=== PATIENT | female | born 1940 | race Caucasian/White ===

== ENCOUNTER 2020-12-13 17:39 | Inpatient (IN) | payer OTHER, BC ==
[~2020-12-13] VITALS: Ht 162.6 cm; Wt 49.5 kg
[2020-12-13 17:51] VITALS: BP 157/97
[2020-12-13 18:51] LABS: ABSOLUTE NEUTROPHILS 3.1 thou/uL (1.4-8.2); BASOPHILS 0.3 % (0.0-2.0); EOSINOPHILS 0.4 % (0.0-3.0); HEMATOCRIT 37.6 % (37.0-47.0); HEMOGLOBIN 12.7 gm/dL (12.0-15.0); LYMPHOCYTES 13.1 % (24.0-44.0); MCH 31.2 pg (26.0-34.0); MCHC 33.9 g/dL (28.0-37.0); MCV 92.2 fL (80.0-100.0); MONOCYTES 9.9 % (1.0-8.0); PLATELET COUNT 240 thou/uL (150-400); POLYS 76.3 % (36.0-66.0); RBC 4.08 mil/uL (4.20-5.00); WBC 4.1 thou/uL (4.0-11.0)
[2020-12-13 18:58] LABS: CALCIUM 10.3 mg/dL (8.5-10.1); CREATININE 0.8 mg/dL (0.6-1.0); POTASSIUM 4.8 mmol/L (3.5-5.1)
[2020-12-13 19:36] LABS: ALBUMIN 3.6 g/dL (3.4-5.0); DIRECT BILIRUBIN 0.3 mg/dL (<0.1-0.2); TOTAL BILIRUBIN 1.8 mg/dL (0.2-1.0); TOTAL PROTEIN 6.2 g/dL (6.4-8.2)
[2020-12-13 21:51] VITALS: BP 157/97
[2020-12-13 22:18] VITALS: BP 156/86
[2020-12-13 23:17] VITALS: BP 173/90
[2020-12-13 23:33] VITALS: BP 173/90
--- NOTE | 2020-12-14 00:42 | NUR ---
RECEIVED REPORT FROM ED NURSE APPROX 2222, PT ARRIVED TO UNIT AT 2225. CONSENTS OBTAINED, BELONGINGS LOGGED. PT ORIENTED TO ROOM AND UNIT. PT AOX3, TO PERSON, PLACE, AND TIME. PT REPORTS 'IM HERE FOR AN OPERATION DOWN THERE' IN REGARDS TO SITUATION. PT WITH INTERMITTENT FORGETFULNESS AND CONFUSION. PT REMAINS PLEASANT WITH BRIGHT AFFECT AND COOPERATIVE MOOD. PT REPORTS NOT HAVING ANY HOME MEDICATIONS, RECALLS TAKING BP MEDICATIONS 'A WHILE AGO'. PT DENIES PAIN AND SOB WHILE ON ROOM AIR. PT TOLERATING PO INTAKE OF FLUIDS AND REGULAR DIET WITHOUT ISSUE. PT WITHOUT NAUSEA OR EMESIS. PT WITHOUT VOID OF ENTRY OF THIS NOTE, VOIDING ROUTINE TO BE DETERMINED. PT WITH WEAKNESS, RESTING IN BED THROUGHOUT SHIFT. FREQUENT REPOSITIONING ENCOURAGED WHILE IN BED, PT NOTED TO SHIFT INDEPENDENTLY. PT ENCOURAGED TO NOTIFY STAFF FOR ALL NEEDS, CALL LIGHT WITHIN REACH, BED ALARM ON, BED LOCKED IN LOWEST POSITION, FREQUENT MONITORING WILL CONTINUE.
[2020-12-14 05:00] LABS: ABSOLUTE NEUTROPHILS 2.5 thou/uL (1.4-8.2); BASOPHILS 0.2 % (0.0-2.0); EOSINOPHILS 1.1 % (0.0-3.0); HEMATOCRIT 37.8 % (37.0-47.0); HEMOGLOBIN 12.8 gm/dL (12.0-15.0); LYMPHOCYTES 19.8 % (24.0-44.0); MCH 31.2 pg (26.0-34.0); MCHC 33.8 g/dL (28.0-37.0); MCV 92.3 fL (80.0-100.0); MONOCYTES 11.3 % (1.0-8.0); PLATELET COUNT 244 thou/uL (150-400); POLYS 67.6 % (36.0-66.0); RDW 14.2 % (10.5-14.5); WBC 3.6 thou/uL (4.0-11.0)
[2020-12-14 05:06] LABS: ALBUMIN 3.7 g/dL (3.4-5.0); CREATININE 0.8 mg/dL (0.6-1.0); TOTAL PROTEIN 6.9 g/dL (6.4-8.2)
[2020-12-14 05:41] LABS: POTASSIUM 3.7 mmol/L (3.5-5.1)
--- NOTE | 2020-12-14 07:35 | H ---
[facility] [place] [address] HISTORY AND PHYSICAL Name: COLLIN FREIRE Room #: 462-P [facility] MGabino#: [id number] Admission: 12/13/20 Attend Phys: Alexey Voss DO Discharge: Date of : 44 Report #: [id number] THIS REPORT FOR: cc: Alexey Voss,Alexey Sanabria,Alexey Nagy DO ~ DATE OF SERVICE: 12/13/2020 HISTORY OF PRESENT ILLNESS: This is a 80-year-old white female who has been admitted for observation purposes initially because of anorexia, weakness, fall, left leg weakness, mental status change. For the last few days, the patient was extremely weaker and had to be assisted with walking. She had fallen a few days ago on her left knee. Denies any pain or head trauma. The patient has lost her appetite over the past month or two and has lost weight, refusing to eat or drink. She was in my office 2 weeks ago showing that she had lost 10 pounds; however, she scored 28/30 on an MMSE exam and seemed cognitively intact at that time. Family describes bizarre behavior, confusion, forgetfulness, repeating herself, refusing to take medications, refusing to believe anything is wrong with her. 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, bilateral cataract resections, hypertension, COVID-19 late last year, lumbar degenerative disk disease, Gilbert's disease, hypertension, hypercholesterolemia. MEDICATIONS ON ADMISSION: None, but she still has been on blood pressure medication, lisinopril-HCTZ, but she refuses to take. ALLERGIES: SULFA AND PREDNISONE. SOCIAL HISTORY: Lives with her and daughter. No cigarette or alcohol use. FAMILY HISTORY: Mother of thyroid cancer. Father of unknown cause. REVIEW OF SYSTEMS: She denies chest pain or dyspnea, vomiting, nausea, diarrhea, dysuria, dysphagia. Family reports they had to left her off the toilet yesterday as she could not get up herself. patient denies any pain anywhere. PHYSICAL EXAMINATION: GENERAL: A pale, weak white female. VITAL SIGNS: BP 157/97, pulse 74, respiration 18, temperature afebrile. HEAD: No rash or trauma. EARS, NOSE AND THROAT: No definite lesions. Mucosa slightly dry. EYES: No icterus. NECK: Supple, without adenopathy or bruits. LUNGS: [address] [address] HISTORY AND PHYSICAL Name: COLLIN FREIRE Room #: 2-P [facility] [place] Honey M.RPaty#: [id number] Admission: 12/13/20 Attend Phys: Alexey Voss, Discharge: Date of : 44 Report #: [id number] Clear. HEART: Rhythm regular, without murmur. ABDOMEN: Soft, without masses, tenderness or guarding or organomegaly. BREASTS: Done in my office revealed no masses. EXTREMITIES: No edema, cyanosis or cellulitis. MUSCULOSKELETAL: Her left knee slightly is swollen, but she moves and there is no tenderness on range of motion of her hips or knees. She is weak on her left leg. She cannot sit up on her own. She cannot stand on her own. She has negative Babinski's, but her patellar reflexe is decreased on the left compared to the right. LABORATORY DATA: Hemoglobin 12.7, MCV 92. White count 4100, platelets 240,000. Has lymphopenia. Calcium slightly high at 10.3, glucose 107, sodium 138, potassium 4.8, CO2 of 28, BUN 17, creatinine 0.8. His GFR 69. IMPRESSION: 1. Weakness, falls, left leg weakness, anorexia, weight loss and cognitive deficits, history of mixed mullerian uterine cancer. 2. Hypertension. 3. History of cognitive deficits, possible adjustment disorder, possible psychosis, pseudodementia or dementia. PLAN: Admit for thorough workup including medical, neurologic and psychiatric, need to rule out radiculopathy, tumor or stroke in brain, severe psychiatric disorder. PROGNOSIS: Guarded. <ELECTRONICALLY SIGNED> By: Alexey Voss DO 12/14/20 0735 1826 [id number] Alexey Voss DO /nt
[2020-12-14 07:39] VITALS: BP 178/96
--- NOTE | 2020-12-14 08:04 | EKG ---
[address] [facility] [place] [address] ELECTROCARDIOGRAM REPORT Name: COLLIN FREIRE Room #: 462-[facility]..#: [id number] Admission: 12/13/20 Attend Phys: Alexey Voss DO Discharge: Date of : 44 Report #: [id number] [facility] ED Test Date: 2020-12-13 Test Time: 18:28:49 Pat Name: COLLIN FREIRE Department: Room: [facility] Gender: F Grants Analyst: BAUDILIO : 1940 Requested By: Edgar Bocanegra Order Number: [id number] MD: Az Mascorro Measurements Intervals [place] Rate: 57 P: 54 NH: 141 QRS: -51 QRSD: 109 T: 70 QT: 484 QTc: 472 Interpretive Statements Sinus bradycardia Left anterior fascicular block Abnormal R-wave progression, late transition LVH with secondary repolarization abnormality Baseline wander in lead(s) V1 No previous ECG available for comparison Electronically Signed On 12-14-2020 8:04:37 CDT by Az Mascorro [email or web address] <ELECTRONICALLY SIGNED> By: Az Mascorro MD, [facility] 12/14/20 0804 1828 1828 Az Mascorro MD, [facility] /EPI
--- NOTE | 2020-12-14 12:10 | NUR ---
Consult was ordered for Dr. Suarez by Dr. Voss. This nurse evaluated patient and spoke with her regarding possible admission to the [facility] health unit. , Mingo, reported that patient was admitted due to weakness to legs and fall. Admits to patient having forgetfulness while at home. Denies patient being officially diagnosed with Dementia. Reports he has DPOA paperwork but patient has not been deemed incompetent. Denies having any other concerns at home except for mobility. Reports that he does not [facility] this point and wants to focus on her mobility issues. Mingo also reported concerns of loss of appetite for patient and weight loss. Education provided regarding services offered on the [facility]. Mingo and patient do not want to pursue admission at this time. Dr. Suarez and myself spoke with Dr. Voss over the phone. If patient and family decide they would like admission to the [facility], patient will be re-evaluated at that time. Dr. Suarez will evaluate patient today as well while on medical unit.
--- NOTE | 2020-12-14 14:48 | NUR ---
The staff asked the patient," are you comfortable now?" after setting the bed grajeda for the patient, patient said, " I do not know, all i know is i feel miserable." the told the staff that the looked uncomfortable in the way she was lying the bed, asked the staff to find a way to make the patient comfortable. the refused all the suggestions the staff gave, such as letting the patient lie on the side and supporting the body with a pillow. the staff asked the to give some suggestions how to make the comfortable, the said, " I do not know.", the complained, " she was comfortable before they gave her the medication."
[2020-12-14 15:37] VITALS: BP 155/82
--- NOTE | 2020-12-14 15:58 | NUR ---
PT ADMITTED RELATED TO WEAKNESS/DEMENTIA. CM REVIEWED CHART AND SPOKE WITH CARE TEAM. CM MET WITH PT AT BEDSIDE THIS DAY AT PT WASN'T ALERT ENOUGH THIS DAY TO PARTICIPATE IN ASSESSMENT. HE INDICATED THAT THEY LIVE IN A HOUSE WITH RAMPS TO ENTER AND AN ELEVATOR INSIDE. HE INDICATED THAT THEIR DTR MERLIN HAS RA SO THE HOUSE IS ACCESSABLE AND WELL EQUIPED FOR SOMEONE WITH DISABILITIES. HE INDICATED THAT PT HAD BEEN CONFUSED/HAD MEMORY ISSUES BUT HAD BEEN INDEPENDENT WITH MOBILITY UP UNTIL JUST BEFORE ADMISSION. THEY HAVE A FWW THAT THEY CAN USE IS NEEDED AT HOME. SPOUSE INDICATED NO HH HX. HE INDICATED THAT HE DOESN'T HAVE A CELL PHONE SO THAT THE HOUSE PHONE OR HIS DTR ARE THE BEST CONTACT. PT, OT, AND ST ORDERED BUT VARIANCED PT WASN'T ABLE TO PARTICIPATE THIS DAY. [facility] ALSO FOLLOWING. CM FOLLOWING REGARDING DC PLANNING.
--- NOTE | 2020-12-14 19:36 | NUR ---
Instruction from Dr. Kate: try not sedate the patient during the night, do not wake the patient up for vital signs during the night. the instruction was passed on to the night nurse. patient had slept for most of the morning, woke up in the afternoon, alert but disoriented, reorineted the patient. denied pain, no nausea or vomiting.
--- NOTE | 2020-12-15 04:44 | NUR ---
ASSUMED PT CARE THIS EVENING. PT IS ALERT AND ORIENTED TO SELF. PT WAS RESTLESS AND IMPULSIVE AT THE BEGINNING OF THE SHIFT. PT SETTLED IN BED FOR THE MOST PART OF THE SHIFT. SITTER IN THE ROOM WITH PT. PT DOES NOT HAVE PIV ACCESS. MEDS GIVEN PER EMAR ORDERS. FALL PRECAUTIONS IN PLACE. WILL CONTINUE TO MONITOR.
--- NOTE | 2020-12-15 15:28 | NUR ---
A/O X 1 SELF. ROOM AIR. ONE ASSIST WITH WALKER. LEFT LEG WEAKNESS. HAS EATEN 40% OF MEALS. AT BEDSIDE AND WANTS ALL MEDICATION VERIFIED BY HIM BEFORE GIVEN TO HER. NO PAIN.
[2020-12-15 15:40] VITALS: BP 150/85
[2020-12-15 15:42] VITALS: BP 158/87
--- NOTE | 2020-12-15 17:07 | NUR ---
SPOUSE NO LONGER INTERESTED IN ADMISSION TO [facility] WANTING SKILLED POST ACUTE CARE STAY. GIVEN LIST TO REVIEW.
[2020-12-15 20:00] VITALS: BP 154/96
--- NOTE | 2020-12-15 20:08 | HC ---
[facility] [place] [address] CONSULTATION Name: COLLIN FREIRE Room #: 462-P ADM IN M.R.#: [id number] Admission: 12/14/20 Attend Phys: Alexey Voss DO Discharge: Date of : 44 Report #: [id number] THIS REPORT FOR: cc: Alexey Voss Donald L. DO Kerstein, Andrew H. DO ~ DATE OF SERVICE: 12/14/2020 INPATIENT PSYCHIATRY CL CONSULTATION PRIMARY PHYSICIAN: Alexey Voss DO CONSULTING PSYCHIATRIST: Jean-Pierre Suarez DO REASON FOR CONSULTATION: Agitation, delirium in a patient with suspected dementia. SOURCES OF INFORMATION: Telephone conversation with Dr. Alexey Voss, initial assessment by Geriatric Psychiatry Unit, director of emergency nursing. Very limited bedside interview with the patient as she was being prepped for a bedside electroencephalogram, further collateral from her . CHIEF COMPLAINT: Unspecified. HISTORY OF PRESENT ILLNESS: This is a 80-year-old female, long time patient apparently of Dr. Alexey Voss. In fact, her states that they saw Dr. Voss's father. The patient was initially admitted due to anorexia, weakness or falls. She reports new-onset left leg weakness, mental status change. Dr. Voss reported for the last few days the patient was extremely weak and had to be assisted with walking. She had fallen a few days ago on her left knee. Denied pain or head trauma. The patient has lost her appetite over the past month or two and has lost weight, refusing to eat or drink. Dr. Voss saw her in the office 2 weeks ago and showing that she had lost 10 pounds. She scored reportedly a 20/30 on the MMSE exam, cognitively intact several weeks ago. The family describes some bizarre behavior, confusion, forgetfulness, repeating herself, refusing to take medications and refusing to believe anything is wrong with her. The patient has a complicated medical history including mixed mullerian and uterine cancer over a year ago, treated with laparoscopic hysterectomy and bilateral salpingo-oophorectomy in 11/2018 [facility]. She also had an endometrial biopsy at [facility] in 2015. She has had bilateral cataract resections. Medically, she has hypertension. She had COVID-19 late in 2019. She has a history of lumbar degenerative disk disease, Gilbert's disease, hypertension, hypercholesterolemia. The patient has been on the combination of blood pressure pill, lisinopril/hydrochlorothiazide, but refuses to take it. [place] [address] CONSULTATION Name: COLLIN FREIRE Room #: 462-P [facility] IN M.R.#: [id number] Admission: 12/14/20 Attend Phys: Alexey Voss DO Discharge: Date of : 44 Report #: [id number] ALLERGIES: LISTED TO SULFA AND PREDNISONE. SOCIAL HISTORY: Lives with her and daughter. Smoking tobacco or drug use history: None. FAMILY HISTORY: Mother of thyroid cancer. Father of an unknown cancer. REVIEW OF SYSTEMS: Done by Dr. Voss. Denies chest pain or dyspnea. Denies vomiting, nausea or diarrhea. Denies dysuria or dysphagia. Family reports they had to lift her off of toilet yesterday, she could not get up herself. The patient denies pain anywhere. Otherwise, review of systems negative. Physical examination performed by Dr. Voss. I will defer to his note for that. LABORATORIES: Done in the Emergency Room. Hematology: White count 3.6, H and H 12.8 and 37.8, platelet count 244, that was as of 12/14. Segmented neutrophil percentage had decreased from 76.3 to 67.6%. Chemistry: Sodium 138, potassium 3.7, chloride 101, bicarbonate 25, anion gap 12, BUN 12, creatinine 0.8, estimated GFR 69, glucose 130, calcium 10. Total bilirubin 2.0, AST 17, ALT 19, alkaline phosphatase 57. Total protein 6.9, albumin 3.7. B12 level low at 246. Vitamin D level pending. TSH is ordered and is normal at 1.022. IMAGING DONE: Includes a head CT done 12/13, which showed no evidence of acute intracranial hemorrhage or other acute intracranial abnormality. From my review of the head CT, there is diffuse frontal atrophy. She had a CT of the lumbar spine, which showed extensive severe multilevel lumbar spondylosis with grade 1 degenerative anterolisthesis of L4 on L5, chronic severe central spinal canal stenosis at L4-L5 and chronic severe right neural foraminal stenosis at L4-L5 and L3-L4. Chest x-ray done on 12/13 showed no acute cardiopulmonary abnormality. PHYSICAL EXAMINATION: GENERAL: In bed with EEG electrodes hooked up, in hospital gown, unkempt. This is a well-developed, ill-appearing female. BMI 18.7, so she is underweight. Weight 49.47 kg. MENTAL STATUS EXAMINATION: Well-developed, ill-appearing female, appearing older than stated age. Attention and concentration limited. Speech coherent. Thought process: Linear, but very limited. Thought content: Poverty of thought. Unable to assess well for suicidality, homicidality, auditory, visual or tactile hallucination, but the patient was not self-injurious. I would assume she is a fall risk and probably an elopement risk. Mood and affect [facility] [address] [place] [address] CONSULTATION Name: COLLIN FREIRE Room #: 462-P ADM IN M.R.#: [id number] Admission: 12/14/20 Attend Phys: Alexey Voss DO Discharge: Date of : 42 Report #: [id number] was congruent, constricted. Insight and judgment would be quite limited. Fund of knowledge: Below average. FORMULATION: A 80-year-old female, admitted following a fall, weakness of her left leg. The patient is highly suspicious to Dr. Voss of being demented. He is wanting workup for her fall, her gait weakness as well as evaluation for dementia. DIAGNOSES: At this time, delirium secondary to general medical condition, namely fall, weakness, novel environment, major neurocognitive disorder due to Alzheimer's disease suspected, other morbidities that were noted include central spinal stenosis, lumbar degenerative changes, borderline B12 deficiency. PLAN: Continue to treat general medical condition. I discussed with Dr. Voss higher level tests such as MRI, EEG, etc., should be done on the medical unit. I want to make sure the patient does not need any acute interventions for her weakness or fall. The who I spoke with on the fourth floor is skeptical of psychiatric admission. He is very concerned about the 's physical state. He has some knowledge of the nature of dementia, but could benefit from improved understanding. Right now I will follow along on the CL capacity. I think overall the patient would benefit from IV haloperidol 0.5 mg q.8 hours, which I have started her on. She previously had been on a higher dose. Also, the patient received Ativan. She is definitely out of it today. I would recommend avoiding Ativan given the risks outweigh the benefits with its deliriogenic properties. The patient is a full code. If the patient stays out of the [facility] needing further general medical care, we can reevaluate for the [facility]; however, today she is not medically stable and needs to remain on [address]. Time spent on this consultation is about 40 minutes, greater than 50% of time spent on review of records and coordination of care. <ELECTRONICALLY SIGNED> By: Jean-Pierre Suarez DO 12/15/202007 1412 0043 Jean-Pierre Suarez DO /nt
[2020-12-15 21:45] VITALS: BP 152/97
[2020-12-15 21:55] VITALS: BP 152/97
--- NOTE | 2020-12-16 07:34 | NUR ---
ASSUMED PT CARE THIS EVENING. PT IS ALERT AND ORIENTED TO SELF. PT CAN BE RESTLESS AND IMPULSIVE. PT HAS A SITTER IN THE ROOM . PT HAD A FALL ON THIS SHIFT BUT NO INJURY WAS NOTED. DOC. PANDYA AND INTERNATIONAL FLIGHT ATTENDANT WAS INFORMED ABOUT PT'S FALL.PT DOES NOT HAVE PIV ACCESS.
[2020-12-16 07:50] VITALS: BP 129/78
--- NOTE | 2020-12-16 14:37 | NUR ---
ASSUMED PT CARE THIS AM. PT A&OX1, ABLE TO MAKE NEEDS KNOWN BUT DOES NOT USE CALL LIGHT. PATIENT IMPULSIVE AT TIMES. MEDICATION TAKEN WITHOUT ISSUE THIS AM. PATIENT HAS A SITTER PRESENT. FALL PRECAUTIONS ARE IN PLACE. PATIENT EATING WELL THIS SHIFT. PATIENT DENIES PAIN, NUBMNESS, OR TINGLING. FALL PRECAUTIONS ARE IN PLACE, CALL LIGHT WITHIN REACH.
[2020-12-16 19:59] VITALS: BP 156/81
--- NOTE | 2020-12-17 03:35 | NUR ---
Assumed pt care at 1900. A/OX2,confused and impulsive on and off through the night. Sitter at the bedside. VSS.Denied pain on assessment. Reports having a hard time falling asleep,took HS Remeron w/o any problems;will endorse to oncoming nurse. Up with AX1,RW/GB. Resting with eyes closed at this time,will continue to monitor pt. Fall precautions in place.
[2020-12-17 08:16] VITALS: BP 158/92
--- NOTE | 2020-12-17 16:19 | HC ---
[facility] [place] [address] CONSULTATION Name: COLLIN FREIRE Room #: 462-P ADM IN M.R.#: [id number] Admission: 12/14/20 Attend Phys: Alexey Voss DO Discharge: Date of : 44 Report #: [id number] THIS REPORT FOR: cc: Alexey Voss Donald L. DO Deutch,Carlos Hardy PhD ~ DATE OF SERVICE: 12/15/2020 NEUROBEHAVIORAL STATUS EXAM ATTENDING PHYSICIAN: Alexey Voss DO EAR MUFF ASSEMBLER: Carlos Rock, PhD CLINICAL PRESENTATION: The patient is a 80-year-old female who was admitted to [facility] for evaluation and treatment of anorexia, weakness and mental status changes. She was reported to have had a severe reduction in functioning for the last couple of months prior to her admission. She had been refusing to eat or drink and personal hygiene and grooming had also deteriorated. Increased help from her family has been necessary for management of nutrition, basic and instrumental activities of daily living. Additionally, she has lacked insight of the extent to which her condition has deteriorated. Her self report of having eaten, maintaining personal hygiene and activity are reported by her family as inaccurate. She has needed help standing and is spending increasing time in bed contributing to generalized weakness. She has a past medical history of uterine cancer that was treated in 11/2018. Initial impressions upon admission to [facility] was weakness, falls, left leg weakness, anorexia, weight loss and cognitive deficits, history of mixed Mullerian uterine cancer, hypertension, cognitive deficits, possible psychosis, pseudodementia or dementia. A complete description of her medical condition, history and medications can be found in her medical record. Neuropsychological consultation was requested to provide assistance in the assessment of cognitive and emotional status and provide recommendations and services. Prior to this most recent admission, she was living with the assistance of her family. She is and has 2 children. Her is reported to have been providing homemaking activities including cooking, medication and manager financial. The patient is an only child without prior treatment for mood or behavior disorder. 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 Driving is reported to have discontinued about one month ago with difficulty in directions for about one year with a more severe deterioration within the last 6 months. [facility] [address] [place] [address] CONSULTATION Name: COLLIN FREIRE Room #: 462-P [facility] IN ..#: [id number] Admission: 12/14/20 Attend Phys: Alexey Voss DO Discharge: Date of : 44 Report #: [id number] TECHNIQUES UTILIZED: Clinical interview, review of medical records, staff consultation and behavioral observation, mini mental status exam 2 standard version, and family interview -- daughter and spouse. EXAMINATION FINDINGS: The patient was unable to accurately describe the reason for her hospitalization. She does not present with auditory or visual hallucinations or aphasia. However, she does have severely decreased insight into her deficits and lack of awareness of the extent to which she has experienced a deterioration in functioning. For example, she reports that her appetite is good, but her family describe minimal intake of food and substantial weight loss. Symptoms are reported to include anxiety, poor sleep schedule and routine, poor appetite and decreased energy level. Her sleep-wake cycle is described as disrupted as she had been sleeping more during the day and remaining awake during the night. She has been uncooperative with the management of her medication and encouragement for maintaining adequate intake of food and liquids. Concern about her family and her wellbeing has been expressed. Her mood appears severely depressed. Her performance on the mini mental status exam was very poor. She was drowsy and needed encouragement to maintain an adequate level of alertness. Performance on the MMSE 2 brief version was 4/16. She was not oriented to time or place. She was 3/3 for initial registration, but 0/3 for immediate recall. Performance on the MMSE 2 standard version was extremely low. She was 0/5 for serial sevens. Naming and repetition were within normal limits. Comprehension and ability to read and follow single command was within normal limits. However, the patient could not copy a simple geometric design. She also was unable to write a sentence or draw a clock. Deficits were noted with visual motor coordination. Moderate to severe levels of perserveration were noted during constructive tasks. Her current presentation is consistent with a delirium, possibly due to sedation. Mood is depressed along with severly impaired insight. Her history suggests a decline of cognitive functioning for about one year. DIAGNOSTIC IMPRESSION: Delirium, mixed level of activity - acute. Major depressive disorder - severe. Neurocognitive disorder - extent to be determined with poor insight and intermittent irritability and agitation. [facility] [address] [place] [address] CONSULTATION Name: TANICOLLIN Room #: 2[place] [place].R.#: [id number] Admission: 12/14/20 Attend Phys: Alexey Yakov Voss, DO Discharge: Date of : 44 Report #: [id number] RECOMMENDATIONS: A treatment program for depression that includes the use of an antidepressant to assist with sleep and encouragement of appetite, e.g., Remeron. Continued psychiatric managment of medication and psychotherapy to assist with adjustment. She will require assistance with the managment of mediction, finances and nutrition. Her family will need to be involved in her treatment planning as she is lacking insight into her deficits. Neuropsychological evaluation is indicated to clarify the severity of cognitive functioning. She may also benefit from inpatient rehabilitation to improve mobility and endurance. Thank you very much for allowing me to provide the consultation on this patient. <ELECTRONICALLY SIGNED> By: Carlos Rock, PhD 12/17/20 1619 [id number] Carlos Rock, PhD /nt
[2020-12-17 16:55] VITALS: BP 141/89
--- NOTE | 2020-12-17 17:27 | NUR ---
ASSUMED PT CARE AROUND 0715. PT ALERT X ORIENTED X 2, FORGETFUL, CONFUSED, IMPULSIVE. 1X PERSON ASST WITH WALKER TO BEDSIDE COMMODE. NO IVC. 1:1 SITTER. TAKE PILLS WHOLE WITH WATER. FAMILY IN THE ROOM. FALL PRECT IN PLACE. WILL CONT TO MOPNITOR.
[2020-12-17 19:22] VITALS: BP 163/83
--- NOTE | 2020-12-18 03:42 | NUR ---
ASSUMED PT CARE THIS EVENING. PT IS ALERT AND ORIENTED TO SELF WITH CONFUSION. PT CAN BE IMPULSIVE AND IRRITABLE. PT WAS RESTLESS THROUGHOUT THE SHIFT AND DID NOT SLEEP. PT DID NOT C/O PAIN. MED WERE GIVEN PER EMAR ORDERS. NO VISIBLE SIGN OF DISTRESS WAS NOTED. THERE IS A SITTER AT PT'S BEDSIDE. PT DOES NOT HAVE PIV ACCESS. FALL PRECAUTION IN PLACE. WILL CONTINUE OT MONITOR.
[2020-12-18 14:01] LABS: ALBUMIN 3.3 g/dL (3.4-5.0); CALCIUM 10.2 mg/dL (8.5-10.1); CREATININE 0.7 mg/dL (0.6-1.0); POTASSIUM 4.3 mmol/L (3.5-5.1); TOTAL BILIRUBIN 1.4 mg/dL (0.2-1.0); TOTAL PROTEIN 6.6 g/dL (6.4-8.2)
--- NOTE | 2020-12-18 14:42 | NUR ---
ASSUMED PT CARE THIS AM. PT A&OX1, DOES NOT USE CALL LIGHT. PATIENT HAS A SITTER IN PLACE. PATIENT TOOK MORNING MEDICATION WITHOUT ISSUE. PATIENT REMAINS CONTINENT, UP WITH ASSIST TO THE BATHROOM. FALL PRECAUTIONS IN PLACE.
[2020-12-18 15:43] VITALS: BP 116/58
[2020-12-18 16:09] VITALS: BP 148/78
--- NOTE | 2020-12-18 16:57 | NUR ---
CM CALLED AND SPOKE WITH PT'S DTR THIS AFTERNOON AND SHE INDICATED THAT SHE WAS DISSATISFIED WITH HER MOTHER'S CARE HERE. CM NOTIFIED ANGIE. PT TO HAVE MRI OF HEAD AND SPINE ON FRIDAY. CM INDICATED TO DTR THAT CM UNDERSTOOD THAT PT'S SPOUSE WAN'T OPEN TO [facility] BUT MIGHT WANT SKILLED REHAB UPON DC. DTR INDICATED THAT THEY WEREN'T ANYWHERE NEAR DISCUSSING DC ANYWHERE. CM FOLLOWING REGARDING DC PLANNIND. PT CONTINUES WITH A 1:1 OF THIS NOTE.
[2020-12-18 19:56] VITALS: BP 153/86
--- NOTE | 2020-12-19 03:39 | NUR ---
ASSUMED PT CARE THIS PM. PT IS ALERT AND ORIENTED TO SELF. PT CAN BE IMPULSIVE AT TIMES. PT HAS SITTER AT BEDSIDE. NO VISIBLE SIGN OF DISTRESS WAS NOTED. MEDS WERE GIVEN PER EMAR ORDERS. FALL PREACAUTIONS IN PLACE. WILL CONTINUE TO MONITOR.
[2020-12-19 08:06] VITALS: BP 166/85
--- NOTE | 2020-12-19 10:58 | NUR ---
ASSUMED PT CARE THIS AM. PT A&OX1, MAKES SOME NEEDS KNOWN. PATIENT HAS A SITTER PRESENT. PATIENT CAN BE IMPULSIVE AT TIMES, AND IS IRRITABLE. MEDICATIONS TAKEN THIS AM. PATIENT ON ROOM AIR. UP WITH ASSIST TO THE BEDSIDE COMMODE. FALL PRECAUTIONS ARE IN PLACE, CALL LIGHT WITHIN REACH.
[2020-12-19 20:30] VITALS: BP 155/87
--- NOTE | 2020-12-20 02:08 | NUR ---
ASSUMED PT CARE THIS PM. PT IS ALERT AND ORIENTED TO SELF. PT CAN BE IMPULSIVE. PT HAS SITTER AT BEDSIDE. MEDS WERE GIVEN PER EMAR ORDERS. NO VISIBLE SIGN OF DISTRESS NOTED. FALL PREACUTIONS IN PLACE. WILL CONTINUE TO MONITOR.
--- NOTE | 2020-12-20 03:01 | HC ---
[facility] [place] [address] CONSULTATION Name: COLLIN FREIRE Room #: 462-P ADM IN M.R.#: [id number] Admission: 12/14/20 Attend Phys: Alexey Voss DO Discharge: Date of : 42 Report #: [id number] THIS REPORT FOR: cc: Alexey Voss Donald L. DO Khosla, Parveen K. MD ~ DATE OF SERVICE: 12/14/2020 HISTORY OF PRESENT ILLNESS: This is a 80-year-old female patient who was evaluated by me for confusion. The patient is not able to provide any history. She is pretty sleepy, but even when I wake her up, she does not give much history. says that confusion is going on for some time and it is either a few months or even longer than that. She did have COVID in March. The question has been raised whether the problem is psychiatric, neurological or combination. Psychiatry as well as Neurology is consulted. REVIEW OF SYSTEMS: Indicate this patient has multiple problems. She is not eating good. She is losing weight. She apparently has a history of anxiety. The patient has been confused and that is difficult for me to examine because the patient has a significant amount of psychotropic medications. They deny any prior history of stroke. I am not sure whether confusion started after the COVID or it was there even before to some extent. A 14-point review of system was carried out, but that is all I can get in this patient and that is mostly from the records as well as talking to the patient's . PAST MEDICAL HISTORY: Negative for any strokes, the best I can tell. FAMILY HISTORY: Negative for early age stroke. SOCIAL HISTORY: Apparently, this patient does not use excessive alcohol or smoke or use any drugs. PHYSICAL EXAMINATION: NEUROLOGICAL: The patient's examination was very limited. She is pretty sleepy. She wakes up when she wakes up. She does not tell me what month or what day it is. I cannot tell how much is because of the psychotropic medication she got yesterday and how much is her baseline. That makes it very difficult to examine the patient. She sometimes followed the commands, but most of the time, she did not. Sensory system examination was impossible in this patient. She does appear to be weak in the left leg, but I cannot tell about the left arm whether that is also weak, but most of the weakness appears to be in the leg. I tried to do the position and pinprick and she did not cooperate. I think she was too sleepy for that. I cannot tell about plantars. Reflexes in the knee appeared to be present on both sides when she relaxes which is rare, but ankle I cannot tell. She did not understand the instructions for cerebellar sign. I could not [facility] [address] [place] [address] CONSULTATION Name: COLLIN FREIRE Room #: 462-P ADM IN M.R.#: [id number] Admission: 12/14/20 Attend Phys: Alexey Voss DO Discharge: Date of : 42 Report #: [id number] look at the fundus. I do not believe she has meningeal sign, although it is difficult to tell. CARDIORESPIRATORY: Unremarkable. Pulses are palpable in the left lower extremity. She does not appear to have any edema. GENERAL: She is moderately built individual and hearing and vision looks adequate. LABORATORY DATA: Indicate a white count of 3.6 and vitamin B12 of 246. As an imaging study, she had a CT scan of the head, which does not show any acute abnormality. She had a CT scan of the lumbar spine, which showed significant lumbar spine stenosis, but that is in L4-L5 location. The weakness appeared to be more diffuse and it is difficult to correlate that weakness with the sensory system and reflex examination because the patient will not cooperate for that. IMPRESSION AND PLAN: Very difficult to evaluate this patient because of the sedation she got, but I agree she needs neurological as well as a psychiatric evaluation as is being done. I will start with an MRI of the brain. I will put her on supplemental vitamin B12. Vitamin B12 is normal, but it is preferable to keep it more than 400. We will await this workup and then decide what further workup this patient needs and if there is any need to do a spinal tap in this patient. Thank you very much for this referral and Dr. Long will follow up this patient with you from tomorrow. <ELECTRONICALLY SIGNED> By: Ajay Crooks MD 12/20/20 0301 [id number] Ajay Crooks MD /nt
[2020-12-20 07:23] VITALS: BP 157/91
--- NOTE | 2020-12-20 11:21 | NUR ---
ASSUMED PT CARE THIS AM. PT A&OX1. PATIENT REFUSED MEDICATION THIS AM, AND REFUSING TO LIFT LEFT LEG WHEN ASKED. PATIENT HAD MRI DONE OF THE LUMBAR AND THORACIC SPINE TODAY, REFUSED THE BRAIN MRI. DR SALES MADE AWARE BY MRI ([facility]). LOREE HAS A SITTER IN PLACE. DENIES ANY PAIN. FALL PRECAUTIONS ARE IN PLACE AND PATIENT REMAINS CONTINENT.
--- NOTE | 2020-12-20 15:53 | NUR ---
PT WENT FOR MRI OF SPINE THIS AM. NURSE INDICATED THAT NEUROLOGIST INDICATED THAT TRANSFER SHOULD BE INITIATED TO RESEARCH FOR NEUROSURGICAL EVAL AND TREAT UNDER BRANDY AND TEAM RELATED TO SPINAL CORD EDEMA. CM CALLED AND SPOKE WITH BRANDY GUZMAN . SHE CONFIRMED THE ABOVE AND INDICATED THAT SHE WAS ALSO SENDING INFO ON PT AND THAT HOPEFULLY THAT WOULD HELP GET PT OVER MORE SMOOTHLY. CM ATTEMPTED PT TO PT'S DTR MERLIN AND LEFT VM. PT'S DTR CALLED UNIT AND INDICATED THAT THEY HAD SPOKEN TO NEUROLOGIST AND DR. HERNANDEZ AND THAT THEY DIDN'T WANT PT TRANSFERED FOR NEUROSURGICAL EVAL AND TREAT AT THIS TIME. CM SPOKE WITH MERLIN AND SHE INDICATED THAT YES THEY WERE REFUSING TRASNFER AT THIS TIME. CM NOTIFIED MEGAN. CM FOLLOWING REGARDING DC PLANNING. PT WAS TO HAVE MRI OF HEAD.
[2020-12-20 19:28] VITALS: BP 152/81
[2020-12-20 21:06] LABS: SYPHILIS AB Non Reactive (Non Reactive)
--- NOTE | 2020-12-21 07:33 | NUR ---
ASSUMED CARE OF AT SHIFT CHANGE. PT IS ALERT BUT ONLY ORIENTED TO PERSON. FALL PRECAUTION IN PLACE. PT DENIED PAIN, NAUSEA OR SOA. 1:[address]. PT WAS PRESCRIBED DECADRON; APPROVAL RECEIVED FROM FAMILY MEMBER. PT WAS ABLE TO GET COMFORTABE AND SLEEP PART OF THE SHIFT. VSS AND NO S/S OF ACUTE DISTRESS. WILL CONTINUE TO MONITOR.
[2020-12-21 08:53] VITALS: BP 164/104
[2020-12-21 12:29] VITALS: BP 126/89
--- NOTE | 2020-12-21 13:20 | NUR ---
Assumed pt care this am, with a sitter at the bed side. Left leg weakness is still noted. Pt is only alert to self, was hard to arouse in the am. Seen by oncology, stated that pt is now DNR and family is opting for pt to go on hospice. CM informed preference is hospice house. Diet and medication are tolerated well. POC followed with no signs or verbalizations of distress noted. Family is at the bed side.
--- NOTE | 2020-12-21 13:24 | NUR ---
Nutrition: pt admitted with weakness, mental status changes. Seen for LOS. 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 Eating variable amounts of meals with ensure ordered BID. Nsg reports pt feeds self and enjoys ensure. Plan is for hospice. Place as low nutrition risk with interventions in place.
--- NOTE | 2020-12-21 14:33 | NUR ---
CM FOLLOWED UP WITH PT'S DTR AND SPOUSE AND THEY INDICATED THEY WANTED REFERRAL SENT TO HOSPICE FOR REVIEW FOR POSSIBLE SERVICES UPON DC. CM FAXED REFERRAL. HOSPICE INDICATED THEY COULD HAVE A NURSE OUT TO ASSESS AT BEDSIDE TOMORROW FRIDAY 12/22 AT 1600. CM NOTOFIED PT'S DTR AND SPOUSE. CM FOLLOWING REGARDING DC PLANNING.
[2020-12-21 15:30] VITALS: BP 126/84
--- NOTE | 2020-12-22 04:09 | NUR ---
Pt. has been awake most of the shift and is very confused. Up to the bedside comode with max assist as she is very weak in the legs. She offers no c/o pain. Sitter at the bedside.
[2020-12-22 06:41] LABS: URINE BILIRUBIN NEGATIVE (Negative); URINE BLOOD NEGATIVE (Negative); URINE CLARITY CLEAR; URINE COLOR YELLOW; URINE GLUCOSE-RANDOM* NEGATIVE (Negative); URINE KETONES NEGATIVE (Negative); URINE LEUKOCYTES NEGATIVE (Negative); URINE NITRITE NEGATIVE (Negative); URINE PROTEIN (DIPSTICK) NEGATIVE (Negative); URINE SPECIFIC GRAVITY >= 1.030 (1.005-1.035); URINE UROBILINOGEN 0.2 E.U./dl (0.2-1.0)
--- NOTE | 2020-12-22 06:53 | HC ---
[facility] [place] [address] CONSULTATION Name: COLLIN FREIRE Room #: 462-P ADM IN M.R.#: [id number] Admission: 12/14/20 Attend Phys: Alexey Voss DO Discharge: Date of : 42 Report #: [id number] THIS REPORT FOR: cc: Alexey Voss Donald L. DO McKittrick, Richard James MD ~ cc: Alexey Voss DO, Davis Willams MD, Angelita Ibrahim MD, Kateryna Alarcon MD DATE OF SERVICE: 12/21/2020 REASON FOR CONSULT: History of stage III uterine cancer, now with MRI head and C-spine consistent with metastatic intracranial disease and epidural disease. HISTORY OF PRESENT ILLNESS: I reviewed the charts from [facility] from Dr. Alarcon and also the chart available. I also had a chance to talk with the patient's daughter and her . The patient has a history of a stage IIIC uterine cancer diagnosed in [address] [facility] by [address]. Roper. She then had seen Dr. Alarcon for second opinion and she completed chemo and radiation therapy in I believe June 2018. Dr. Ibrahim did the radiation therapy. She had done reasonably well. I had last seen her in August of this year. Her tumor markers have been normal. Unfortunately, she recently came in with mental status changes. The mental status changes go back two years, but they have been worse in the last six weeks. She had been progressively ____. They recently did an MRI, which shows consistent with metastatic disease to the brain and spine and probably epidural. I reviewed these images with the physician's assistant county attorney for the neurosurgeon. Past history is notable for the stage III mixed Mullerian uterine type cancer, status post chemo and radiation therapy. I believe the radiation therapy I see was completed on 08/02/2019. Unfortunately, she is doing poorly at this time. I did discuss with the patient's family that the brain mets could be treated with radiation therapy, but the prognosis either way is not good. With radiation therapy, it may be that her survival might be improved by several months. Without therapy, I think her survival is probably between 1 and 6 weeks. The patient had previously told the family she did not wish to have chemo and radiation therapy. Again, I think it is very appropriate as I do not think we would greatly improve her performance status plus with what sounds like preexisting cognitive impairment, the radiation therapy would probably greatly worsen and I am afraid her quality of life would be very poor. The family seems to agree with this plan. I have also talked with Dr. Kateryna Alarcon, who agrees also. PAST MEDICAL HISTORY: Notable for the stage IIIC uterine cancer, also history of COVID last year, history of bilateral cataract disease, history of lumbar degenerative disease, history of Gilbert's disease, history of hypertension, [address] [address] CONSULTATION Name: COLLIN FREIRE Room #: 462-P [facility] IN M.R.#: [id number] Admission: 12/14/20 Attend Phys: Alexey Voss DO Discharge: Date of : 44 Report #: [id number] history of hyperlipidemia. ALLERGIES: BEFORE INCLUDE SULFA AND PREDNISONE. SOCIAL HISTORY: Lives with and her daughter and note that daughter had recent hip surgery. Not a smoker, not a drinker. FAMILY HISTORY: Mother had thyroid cancer. MEDICATIONS: At this time currently include dexamethasone 6 q. 6 IV which could change to pills, vitamin D 5000 units daily, mirtazapine 15 daily, multivitamin with iron daily, thiamine 100 mg daily, haloperidol p.r.n. Flu vaccine was given. PHYSICAL EXAMINATION: GENERAL: The patient appears her stated age. VITAL SIGNS: Height is 5 feet 4 inches, weight is 109.1 pounds. Recent blood pressure is 164/104, 94% O2 sat, pulse 77, temperature 97.8. HEENT: Face is symmetrical. NEUROLOGIC: She is moving her arms a little bit. She does not really seem to want to wake up, though she does mumble a little bit that she is not hurting, but does not really want to open her eyes when I try to use a flashlight. Her mouth is clear. NECK: No enlarged lymph nodes in her neck. LUNGS: Seem mostly clear and symmetric. No rhonchi or rales. HEART: Appears regular rate. ABDOMEN: Without masses, nontender. EXTREMITIES: Without clubbing, cyanosis. ASSESSMENT AND PLAN: 1. History of stage III mixed Mullerian cancer, now with MRI head suggesting intracranial disease as well as epidural and intracaudal disease. As above, prognosis is very poor. I talked with family for 32 minutes. We are all in agreement that at this point palliative care is appropriate and the patient had not wished to take other aggressive therapy. Daughter knows someone who works at [facility], who she will contact and let the nurses at the hospital know. already has plans to meet with Dr. Voss tomorrow morning at 7:30 to discuss care. We have been asked not to discuss DNR or hospice or the metastatic disease with the patient. We will try to abide by this. 2. DNR status. As above, I talked with family. They would like her to be a DNR as she had had a previous [id number] DNR status. We will change this. [facility] [address] [place] [address] CONSULTATION Name: COLLIN FREIRE Room #: 462-P ADM IN M.R.#: [id number] Admission: 12/14/20 Attend Phys: Alexey Voss DO Discharge: Date of : 44 Report #: [id number] 3. Preexisting cognitive impairment, hard to assess at this time. We will be available. <ELECTRONICALLY SIGNED> By: Carlos Trevino MD 12/22/20 0653 [id number] [id number] Carlos Trevino MD /nt
[2020-12-22 08:15] VITALS: BP 111/81
--- NOTE | 2020-12-22 15:58 | NUR ---
FAMILY NOW INDICATING THAT THE WANT PT ASSESSED FOR HOSPCIE HOUSE NOT HOSPICE AT HOME. JOHANA WITH HOSPICE TO BE OUT AT 1800 THIS DAY. FAMILY INDICATED THAT IF PT DOESN'T MEET CRITERIA FOR HOUSE ADMISSION THEY WANTED PT TO GO TO LTC AT [facility] SO DR. HERNANDEZ COULD FOLLOW CARES. CM FAXED REFERRAL TO [facility] AND SPOKE WITH CHELSEA IN ADMISSIONS SHE INDICATED THAT THEY DON'T HAVE ANY BEDS AT ALL. CM NOTIFIED DR. HERNANDEZ AND FAMILY. DAVID INDICATED HE WOULD BE OK WITH GOING TO OR A FACILITY IN THE COMMUNITY NEARBY WHERE HE COULD VISIT HER. CM ASKED ABOUT [facility] HE STATED THAT WOULD BE OK. CM NOTIFIED FAMILY AND THEY INDICATED THEY WOULD BE OK WIHT REFERRALS BEING SENT TO [facility] OP OR THE [facility] DR. HERNANDEZ CAN SEE PTS THERE. CM INDICATED THAT THOSE ARE BOTH AL LEVELS OF CARE AND AREN'T STAFFED WITH 24/7 ASSISTANCE AND SUPERVISON WHICH THE PT NEEDS THAT THOSE FACILITIES WOULD LIKELY REQUIRE FAMILY TO PAY FOR PD SERVICES IF ACCEPTED. AT THIS TIME FAMILY WANT PT TO CO TO HOSPICE HOUSE OR TO [facility] ONCE A BED IS OPEN WITH HOSPICE SERVICES. CM FOLLOWING.
--- NOTE | 2020-12-22 16:03 | NUR ---
Gal is dc as of this writing as per Dr. Voss, haldol is to be given when pt is aggitated. Pt has to be siter free to be able to transfer to a facility. If pt or family refuses plan of care especially medications for the nurse to call Dr. Voss at [phone]
[2020-12-22 20:24] VITALS: BP 139/79
--- NOTE | 2020-12-23 03:40 | NUR ---
Pt. rested quietly at intervals during the night when checked on during frequent rounds. She is oriented to self only. Pt. becomes anxious at times. Assisted up to the bedside commode with max of two person and gait belt. Bed alarm is on.
[2020-12-23 07:51] VITALS: BP 142/80
--- NOTE | 2020-12-23 14:55 | NUR ---
Assumed pt care this am, vs stable. Pt did not have a sitter since pm, alert to self would get confused at times but redirectable. Minimal intae of meals are noted, though pt mentioned she is not a big eater and would prefer small meals and those she can pick on. POC followed, no signs or verbalizations of distress noted. Family at the bed side.
[2020-12-23 17:07] VITALS: BP 142/60
[2020-12-23 20:00] VITALS: BP 145/67
[2020-12-23 20:29] VITALS: BP 145/67
--- NOTE | 2020-12-24 06:17 | NUR ---
PT WAS UP THROUGH THE NIGHT, REPORTS NO PAIN OR DISCOMFORT, COMPLIANT WITH TREATMENT. NO ADVSERSE REACTION NOTED. WILL CONTNUE TO MONITOR.
[2020-12-24 07:36] VITALS: BP 171/86
[2020-12-24 14:24] LABS: ABSOLUTE NEUTROPHILS 2.9 thou/uL (1.4-8.2); EOSINOPHILS 1.6 % (0.0-3.0); HEMATOCRIT 36.3 % (37.0-47.0); HEMOGLOBIN 11.9 gm/dL (12.0-15.0); LYMPHOCYTES 14.4 % (24.0-44.0); MCH 30.8 pg (26.0-34.0); MCHC 32.9 g/dL (28.0-37.0); MCV 93.7 fL (80.0-100.0); MONOCYTES 10.6 % (1.0-8.0); PLATELET COUNT 213 thou/uL (150-400); POLYS 73.4 % (36.0-66.0); RBC 3.88 mil/uL (4.20-5.00); RDW 14.1 % (10.5-14.5)
[2020-12-24 14:56] LABS: ALBUMIN 3.1 g/dL (3.4-5.0); CALCIUM 10.1 mg/dL (8.5-10.1); CREATININE 0.8 mg/dL (0.6-1.0); TOTAL PROTEIN 6.2 g/dL (6.4-8.2)
[2020-12-24 16:30] VITALS: BP 183/92
--- NOTE | 2020-12-24 19:17 | NUR ---
Assumed pt care this am vs stable, ate a good portion of her meals today. Rash on both lower arms were noted, medication givne as per emar. Uses the bed grajeda to void since weakness in the left leg is still evident. Pt did complain of discomfort in her left lower back and groin area but did nt want to take any medications and stated this is usually come and go for her. POC followed with no signs or verbalizations of distress noted. Pain was rated at a 3. Endorsed to the night nurse.
[2020-12-24 19:24] VITALS: BP 165/93
[2020-12-24 21:30] VITALS: BP 149/83
--- NOTE | 2020-12-25 02:24 | NUR ---
PT SLEPT INTERMITTENTLY WITH MULTIPLE ATTEMPTS TO EXIT THE BED, ELEVATED BP NEW ORDER RECEIVED ADMINISTERED, REASSESSED AFTER 30 MINUTES BACK TO BASELINE WILL CONTINUE TO MONITOR THE PT.
[2020-12-25 04:37] VITALS: BP 128/76
[2020-12-25] MEDS ORDERED: HYDRALAZIN20 MG/1 ML IV PUSH (08:03)
[2020-12-25] MEDS ORDERED: MORPHINE S100 MG/51 PO (08:03)
[2020-12-25] MEDS ORDERED: MIRALAX17 GM PO (08:03)
[2020-12-25] MEDS ORDERED: HALOPERIDOL5 MG/1 ML IV PUSH (08:03)
[2020-12-25] MEDS ORDERED: MELATONIN5 M1 PO (08:03)
[2020-12-25 09:00] VITALS: BP 120/60
--- NOTE | 2020-12-25 11:19 | NUR ---
JANET RECEIVED CONSULT FROM DR. HERNANDEZ INDICATING THAT THEY WANT SHORT TERM SKILLED REHAB AT [facility] NOW. JANET CALLED CHELSEA IN ADMISSIONS THERE THIS AM AND SHE INDICATED THAT OF RIGHT NOW SHE DIDN'T HAVE BEEDS BUT THAT THEY HAVE A UR MEETING AT 12:00 AND THAT SHE WILL CALL CM WITH UPDATE ON BEDS AFTER THAT. CM FAXED REFERRAL AGAIN FOR REVIEW. CM FOLLOWING REGARDING DC PLANNING.
--- NOTE | 2020-12-25 18:10 | NUR ---
PICC placed per Dr. Voss, CXR ordered for confirmation. Pt upset about PICC being placed, asked "Why doesn't anyone ask me what I want? I'm the patient." RN encouraged pt to speak with family tomorrow and Dr. Voss when they visit.
--- NOTE | 2020-12-25 18:14 | NUR ---
Pt refused noon and evening vital signs. "I really want you to just leave me alone so I can rest."
--- NOTE | 2020-12-25 18:16 | NUR ---
VAT CONSULTED FOR PICC PLACEMENT. PT HAS EXTREME PAIN IN R ARM SO PLACED IN PAPI BRACHIAL, WIDELY PATENT WITH USG. SL BIOFLO TRIMMED TO 44CM INSERTED TO 39CM WITH BRISK BR.PEAKED PWAVE ON 3CWAVE BUT NOT WITHIN PERAMETERS FOR CONFIRMATION . STAT CXR ORDERED. PT TOLERATED WELL.
--- NOTE | 2020-12-25 18:55 | NUR ---
cxr confirmed picc in svc, released for immediate use per protocol to tracee
--- NOTE | 2020-12-25 23:24 | NUR ---
ASSUMED CARE OF PT AT 1930. PT IS A&O TO SELF, PLACE, & SITUATION. DENIES PAIN. IS ON ROOM AIR. IS STABLE. IS NON WT BEARING, IS MAX ASSIST, STAND PIVOT TO BSC. FALL PRECAUTIONS & HOURLY ROUNDING CONTINUED THIS SHIFT. LABS & VITALS REVIEWED. PT REFUSED SLEEPING AID & TOPICAL MEDICATION. IS CURRENTLY IN BED ASLEEP. CALL LIGHT WITHIN REACH. WILL CONTINUE TO MONITOR.
[2020-12-26 08:30] VITALS: BP 159/89
--- NOTE | 2020-12-26 11:44 | NUR ---
This nurse was asked to review patient for possible admission to the [facility]. Patient calm, pleasant and cooperative. No behaviors noted from patient. Patient does not meet criteria for inpatient psychiatry at this time. Will defer discharge plans and further treatment to medical team.
[2020-12-26 12:00] VITALS: BP 131/73
--- NOTE | 2020-12-26 12:26 | NUR ---
CM SPOKE WITH CHELSEA BRANCH AT [facility], PT'S DTR AND SPOUSE. REFERRALS SENT TO [facility] AND [facility] FOR REVIEW FOR SHORT TERM SKILLED REHAB TRANSITION TO LTC PP WITH HOSPICE. CM AWAITING RESPONSE.
--- NOTE | 2020-12-26 19:45 | NUR ---
Assumed pt care this am, vs stable. Prefers small portions for her meals. Refused miralax and other oral medications, PICC line in place. Pt was seen by psych md and informed pt that she has cancer. Pt verbalized several times "i dont want to , i am not ready to ". POC followed with no signs or verbalizations of distress noted.
[2020-12-26 20:42] VITALS: BP 146/94
--- NOTE | 2020-12-27 07:30 | NUR ---
Pt A/OX1,pleasant confused but not impulsive. VSS.Denied pain on assessment. Up with max assist to BSC.Continent of B&B. Fall precautions in place,frequent checks on pt.
[2020-12-27] MEDS ORDERED: HALDOL5 MG/1 ML IM (07:32)
[2020-12-27] MEDS ORDERED: TYLENOL325 MG PO (07:32)
[2020-12-27 09:15] VITALS: BP 149/67
[2020-12-27 12:39] VITALS: BP 151/72
[2020-12-27 12:42] VITALS: BP 151/72
[2020-12-27 16:00] VITALS: BP 147/86
--- NOTE | 2020-12-27 16:28 | NUR ---
CM SPOKE WITH PT'S SPOUSE AND DTR WELL DR. HERNANDEZ TODAY. INDICATED THAT [facility] IS REVIEWING REFERRAL AND THAT [facility] CAN ACCEPT BUT WOULD WANT PT TOMORROW. CM HAD SENT REFERRAL TO [facility] BUT HAVEN'T HEARD BACK FROM [facility] IN ADMISSIONS OF THIS NOTE. FAMILY HOPING THAT [facility] CAN ACCEPT. LIAISON WANTED TO SPEAK WITH PT'S NURSE OR DO ONSITE EVAL PRIOR TO MAKING A DETERMINATION. CM FOLLOWING.
--- NOTE | 2020-12-27 18:47 | NUR ---
ASSUMED CARE OF PT AT 0700. THROUGHOUT THE DAY THE PT HAD NO COMPLAINTS AND REMAINED CALM. WORKED WITH THERAPY AND WAS ABLE TO EAT A DECENT AMOUNT OF EACH MEAL. FALL PRECAUTIONS IN PLACE, WILL CONTINUE TO MONITOR.
[2020-12-27 19:48] VITALS: BP 130/80
--- NOTE | 2020-12-28 03:15 | NUR ---
Pt A/OX1,withdrawn and c/o feeling tired but hesitant when prompted to go to bed and get some rest. Denies pain on assessment. VSS.Max assisit with transfers to bed/chair.Continent of bladder this shift. Fall precautions in place,frequent checks on pt.
[2020-12-28 08:07] VITALS: BP 150/75
--- NOTE | 2020-12-28 09:19 | NUR ---
[facility] CAN'T TAKE. PT IS UNVACINATED AND THEY DON'T TAKE UNVACINATED PT'S ON SKILLED UNIT. PT WOULD ALSO BE QUARENTINED AND FAMILY DIDN'T WANT HER TO BE. THEY REACHED OUT [facility] AND WOULD BE OK WITH THEIR QUARENTEEN POLICY AND VISITATION BUT NOW THEY WANT [facility] AGAIN. CM REACHED OUT TO [facility] AND [facility]. AWAITING RESPONSE.
--- NOTE | 2020-12-28 09:59 | NUR ---
Nutrition follow up: Pt noted with metestatic uterine CA, unaware/forgets dx. Intakes at meals variable, avg 40-50%. Ensure BID with 75% avg intakes. No new weights, unsure of loss. Poor prognosis, plan is to d/c to SNF, LTC with hospice. Continues low nutrition risk with interventions in place.
--- NOTE | 2020-12-28 15:55 | NUR ---
ASSESSMENT CHARTED. PT ALERT TO SELF WITH CONFUSION. VSS. SEEN BY DR. HERNANDEZ. ORDERS GIVEN TO DISCHARGE PT TO SNF. FAMILY NOTIFIED.
--- NOTE | 2021-01-01 16:48 | D ---
[facility] [place] [address] DISCHARGE SUMMARY Name: COLLIN FREIRE Room #: 462-P [facility] IN M.R.#: [id number] Admission: 12/14/20 Attend Phys: Alexey Voss DO Discharge: 12/28/20 Date of : 44 Report #: [id number] THIS REPORT FOR: cc: Alexey Voss,Alexey Sanabria,Alexey Nagy DO ~ DATE OF SERVICE: 12/28/2020 HISTORY OF PRESENT ILLNESS: This 80-year-old white female was admitted with weakness, anorexia, fall and inability to walk. 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 The patient had been reluctant to take any medications throughout her adult life and would not take blood pressure medicine, nor cholesterol medicine. She had had progressive cognitive decline over several months, repeating herself, been confused, having poor short-term memory, but other times was lucid and scored 28/30 on an MMSE exam 2 weeks before this admission. Family was reluctant to have the patient hospitalized during those times for a more thorough evaluation and patient was very unwilling to be evaluated by other doctors. PHYSICAL EXAMINATION: GENERAL: Initial physical revealed pale, weak, white female, confused about recent events. VITAL SIGNS: BP 157/97. HEAD AND NECK: Negative. No adenopathy or bruits. LUNGS: Clear. CARDIAC: Negative. BREAST: Negative. ABDOMEN: Soft without mass or tenderness. EXTREMITIES, NEUROLOGIC, MUSCULOSKELETAL: She had marked difficulty moving her left leg. Babinski's were absent initially. Patellar reflex was decreased on the left. She could not sit up in bed on her own. LABORATORY DATA: Hemoglobin was 12.7, white count 4000. Calcium high at 10.2, glucose 107, sodium 128, potassium 4.8, CO2 of 28, BUN 17, creatinine 0.8, estimated GFR 69. HOSPITAL COURSE: The patient was admitted, seen in consult by Dr. Crooks of Neurology, Dr. Rock of Psychology, Dr. Suarez of Psychiatry and Dr. Mejia of Oncology. Workup included MRIs of the brain, cervical, thoracic and lumbar spines. Brain had several intracranial masses suggestive of intracranial metastatic disease, the largest being 3 cm with moderate surrounding edema and mild mass effect with midline shift of 2-3 mm, other smaller enhancing lesions, one in the temporal lobes and numerous small masses [address] [address] DISCHARGE SUMMARY Name: COLLIN FREIRE Room #: 462-P [facility] IN [facility].#: [id number] Admission: 12/14/20 Attend Phys: lAexey Voss DO Discharge: 12/28/20 Date of : 44 Report #: [id number] in the cerebellum as well as spinal cord showing metastatic disease at C3, at C4 to T4 consistent with epidural metastatic disease. The patient remained extremely weak and could not walk. She received physical therapy. Dr. Mejia felt that prognosis was poor and did not recommend any treatment for the metastatic cancer. He contacted Dr. Alarcon, her oncologist at . We did try intravenous steroids, but the patient became extremely hyperactive and agitated, so it was discontinued. She remained calm, at times was agitated and required one dose of IV Haldol which did help relieve her anxiety. Final hemoglobin is 11.9 grams, white count 4000, platelets 213,000. Sodium 136, potassium 4.0, CO2 of 23, BUN 18, creatinine 0.8, estimated GFR 69, blood sugar 117, calcium 10.1. Liver enzymes normal. Albumin low at 3.1. Vitamin B12 levels normal. Vitamin D level was low at 13.8. TSH was normal. On 12/29/2020, after multiple discussions with the family including requesting hospice evaluation, the patient was transferred to the senior care unit at [facility] on regular diet, MiraLax 1 capful daily as needed for constipation, melatonin 10 mg at bedtime p.r.n. sleep, morphine sulfate 10 mg p.o. every 1-3 hours p.r.n. discomfort, Tylenol 650 mg q.6h. p.r.n. pain, Haldol 5 mg IM q.4h p.r.n. severe agitation. Overall prognosis is poor. We will attempt to get the patient back up on her feet, which she admitted she would like to do. She received physical therapy and occupational therapy and if cannot walk, hopefully she will be able to wean herself in a wheelchair. FINAL DIAGNOSES: 1. 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 2. Moderate protein calorie malnutrition. 3. History of hypertension. 4. Organic brain syndrome. 5. Reactive depression. 6. Episodic delirium. <ELECTRONICALLY SIGNED> By: Alexey Voss DO 01/01/21 [id number] [id number] Alexey Voss DO /nt
--- NOTE | 2021-01-06 05:39 | EEG ---
[facility] [place] [address] ELECTROENCEPHALOGRAM Name: COLLIN FREIRE Room #: 462-P [facility] IN M.R.#: [id number] Admission: 12/14/20 Attend Phys: Alexey Voss DO Discharge: 12/28/20 Date of : 44 Report #: [id number] THIS REPORT FOR: //name// DATE OF SERVICE: 12/14/2020 This patient is being evaluated for altered mental status. EEG was done by placing the electrode by standard 10-20 system of electrode placement. Both referential and sequential montages were used for recording. Background activity is about 9 Hz and 30 microvolt. It is intermixed with theta range slowing. Last portion of this EEG was obtained when the patient was asleep. That is associated with bilateral slowing and vertex sharp waves. Throughout the record, no active epileptiform activity was noticed. IMPRESSION: This EEG is intermixed with moderate amount of slowing, which is nonspecific and can occur with dementia, encephalopathy, effect of psychotropic medication, etc. Clinical correlation is recommended. <ELECTRONICALLY SIGNED> By: Ajay Crooks MD 01/06/21 0539 [id number] Ajay Crooks MD /nt
== END 2020-12-28 15:58 | DRG 54 ==
LOC: ER 17:39 → 4W 19:09 → EROBS 19:09 → 4W 22:16
PROVIDERS: Emergency Medicine; Family Medicine; ADMIT Internal Medicine; ATTEND Internal Medicine
PROC: 3E02340 Introduction of Influenza Vaccine into Muscle, Percutaneous Approach (ICD-10-PCS; 2020-12-20)
PROC: 05HY33Z Insertion of Infusion Device into Upper Vein, Percutaneous Approach (ICD-10-PCS; principal; 2020-12-25)
DX: C79.31 Secondary malignant neoplasm of brain (principal); I63.9 Cerebral infarction, unspecified; C79.49 Secondary malignant neoplasm of other parts of nervous system; G93.40 Encephalopathy, unspecified; F05 Delirium due to known physiological condition; Z68.1 Body mass index [BMI] 19.9 or less, adult; R63.0 Anorexia; E55.9 Vitamin D deficiency, unspecified; F32.9 Major depressive disorder, single episode, unspecified; G83.14 Monoplegia of lower limb affecting left nondominant side; F43.20 Adjustment disorder, unspecified; C55 Malignant neoplasm of uterus, part unspecified; J45.909 Unspecified asthma, uncomplicated; G30.9 Alzheimer's disease, unspecified; F02.80 Dementia in other diseases classified elsewhere, unspecified severity, without behavioral disturbance, psychotic disturbance, mood disturbance, and anxiety; R63.4 Abnormal weight loss; F41.9 Anxiety disorder, unspecified; R41.9 Unspecified symptoms and signs involving cognitive functions and awareness; E78.5 Hyperlipidemia, unspecified; Z66 Do not resuscitate; M19.90 Unspecified osteoarthritis, unspecified site; F09 Unspecified mental disorder due to known physiological condition; Z20.822 Contact with and (suspected) exposure to COVID-19; Z86.16 Personal history of COVID-19; Z88.2 Allergy status to sulfonamides; Z88.8 Allergy status to other drugs, medicaments and biological substances; Z98.42 Cataract extraction status, left eye; Z98.41 Cataract extraction status, right eye; Z28.21 Immunization not carried out because of patient refusal; Z23 Encounter for immunization
CPT/HCPCS: 10040; 27000